=== PATIENT | male | born 1940 | race Caucasian/White ===

== ENCOUNTER 2018-10-13 15:05 | Outpatient (CLI) | payer MEDICARE, BC ==
--- NOTE | 2018-10-13 16:17 | RAD ---
LEFT WRIST FOUR VIEWS: HISTORY: Fall today with wrist pain. 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 There is s ome cystic change involving the scaphoid. The are no signs of fracture or dislocation. IMPRESSION: No evidence of fracture. POS: [facility]
--- NOTE | 2018-10-13 16:19 | RAD ---
LEFT HAND THREE VIEWS: HISTORY: Fall. Pain. COMPARISON: None. FINDINGS: There are minimal vascular calcifications. The joint spaces are preserved. No fracture. No cortical irregularity or periosteal reaction. IMPRESSION: No posttraumatic change. POS: [facility]
== END 2018-10-13 15:06 | disposition home or self-care (01) ==
LOC: MADRAD 15:05
PROVIDERS: ATTEND Family Medicine
DX: M79.642 Pain in left hand (principal)

== ENCOUNTER 2020-05-04 11:23 | Emergency (ER) | payer MEDICARE, BC ==
--- NOTE | 2020-05-04 12:19 | RAD ---
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 No acute fracture or dislocation is noted. IMPRESSION: No acute fracture or dislocation.
== END 2020-05-04 12:33 | disposition home or self-care (01) ==
LOC: MADERS 11:23
DX: S40.012A Contusion of left shoulder, initial encounter (principal); E78.5 Hyperlipidemia, unspecified; I25.10 Atherosclerotic heart disease of native coronary artery without angina pectoris; I10 Essential (primary) hypertension; E03.9 Hypothyroidism, unspecified; M10.9 Gout, unspecified; Z87.891 Personal history of nicotine dependence; Z79.899 Other long term (current) drug therapy; Z79.82 Long term (current) use of aspirin; W55.22XA Struck by cow, initial encounter
CPT/HCPCS: 94760

== ENCOUNTER 2023-03-11 09:44 | Emergency (ER) | payer MEDICARE, BC ==
[2023-03-11] MEDS ORDERED: Ketorolac Tromethamine 60 MG/2 ML VIAL ONE (11:33)
== END 2023-03-11 12:45 | disposition home or self-care (01) ==
LOC: MADERS 09:44
DX: S39.012A Strain of muscle, fascia and tendon of lower back, initial encounter (principal); I10 Essential (primary) hypertension; E78.5 Hyperlipidemia, unspecified; I25.10 Atherosclerotic heart disease of native coronary artery without angina pectoris; E03.9 Hypothyroidism, unspecified; Z87.891 Personal history of nicotine dependence; Z79.899 Other long term (current) drug therapy; Z79.82 Long term (current) use of aspirin; X50.1XXA Overexertion from prolonged static or awkward postures, initial encounter
CPT/HCPCS: 72070; 72100; 96372; J1885

== ENCOUNTER 2024-05-18 09:18 | Emergency (ER) | payer BC, MEDICARE ==
[2024-05-18] MEDS ORDERED: Tranexamic Acid 1,000 MG/10 ML VIAL ONE (09:23)
[2024-05-18] MEDS ORDERED: Lidocaine 1% w/Epinephrine 1:100K 20 ML VIAL ONE (09:45)
[2024-05-18] MEDS ORDERED: Lorazepam 2 MG/ML VIAL ONE (09:50)
[2024-05-18] MEDS ORDERED: Bacitracin 1 PK ONE ×2 (10:32→10:45)
== END 2024-05-18 10:50 | disposition home or self-care (01) ==
LOC: MADERS 09:18
DX: S01.01XA Laceration without foreign body of scalp, initial encounter (principal); S60.511A Abrasion of right hand, initial encounter; I25.10 Atherosclerotic heart disease of native coronary artery without angina pectoris; E03.9 Hypothyroidism, unspecified; E78.5 Hyperlipidemia, unspecified; I10 Essential (primary) hypertension; Z87.891 Personal history of nicotine dependence; W01.198A Fall on same level from slipping, tripping and stumbling with subsequent striking against other object, initial encounter
CPT/HCPCS: 12002; 70450; 96372; 99284; J2060

== ENCOUNTER 2024-06-21 19:44 | Emergency (ER) | payer MEDICARE, BC ==
[2024-06-21] MEDS ORDERED: HYDROcodone/Acetaminophen 10/325 mg Tablet ONE (20:18)
[2024-06-21] MEDS ORDERED: tiZANidine HCl 4 MG TAB PO SCH (20:30)
== END 2024-06-21 21:00 | disposition home or self-care (01) ==
LOC: MADERS 19:44
DX: M54.6 Pain in thoracic spine (principal); V89.2XXA Person injured in unspecified motor-vehicle accident, traffic, initial encounter
CPT/HCPCS: 99283

== ENCOUNTER 2024-07-03 15:19 | Emergency (ER) | payer MEDICARE, BC | END 2024-07-03 16:00 | disposition home or self-care (01) | LOC: MADERS 15:19 | DX: L03.113 Cellulitis of right upper limb (principal); I10 Essential (primary) hypertension; I25.10 Atherosclerotic heart disease of native coronary artery without angina pectoris; E78.5 Hyperlipidemia, unspecified; M10.9 Gout, unspecified; H40.9 Unspecified glaucoma; Z79.899 Other long term (current) drug therapy; Z79.82 Long term (current) use of aspirin; Z79.02 Long term (current) use of antithrombotics/antiplatelets; Z95.5 Presence of coronary angioplasty implant and graft; Z87.891 Personal history of nicotine dependence | CPT/HCPCS: 87070; 87077; 87186; 87205; 99283 ==